=== PATIENT | male | born 1975 | race Hispanic/Latino ===

== ENCOUNTER 2017-05-15 01:06 | Emergency (ER) | payer BC ==
[~2017-05-15] VITALS: Ht 175.3 cm; Wt 98.9 kg
[~2017-05-15 01:06] MED LIST: FLONASE16 GM
== END 2017-05-15 02:57 | disposition home or self-care (01) ==
LOC: FSED 01:06
DX: R50.9 Fever, unspecified (principal); R11.0 Nausea; R51 Headache; E78.5 Hyperlipidemia, unspecified
CPT/HCPCS: 80053; 82553; 84484; 85025; 87400; 93005; 99282